=== PATIENT | male | born 1945 | race Caucasian/White ===

== ENCOUNTER 2020-05-02 10:24 | Day surgery (SDC) | payer MEDICARE ==
[2020-04-30 15:47] VITALS: BMI 20.3
[~2020-05-02 10:24] MED LIST: LACTATED RINGERS 1,000 ML IV SCH
[2020-05-02 10:58] VITALS: TEMP 98.3
[2020-05-02] MEDS ORDERED: LIDOCAINE 1% (10MG/ML) FOR IV START INTRADERMA ONE (11:07)
[2020-05-02] MEDS ORDERED: PROPOFOL 10 MG/ML 20 ML VIAL IV ONE (11:25)
--- NOTE | 2020-05-02 11:25 | P.GSHP ---
History of Present Illness H&P Date: 05/02/20 Chief Complaint: Rectal bleeding This a 74-year-old male who presents today for colonoscopy. Patient has had issues rectal bleeding. Past Medical History Past Medical History: Cancer, Chest Pain / Angina, Hypertension, Prostate Disord er Additional Past Medical History / Comment(s): current URI: sore throat,runny nose,cough. He went to [facility] 04/29/20 and had covid 19 test but no result yet. ulcer, rectal bleeding, hx skin cancer, enlarged prostate History of Any Multi-Drug Resistant Organisms: None Reported Additional Past Surgical History / Comment(s): removal of skin cancer from nose, forehead and back. Past Anesthesia/Blood Transfusion Reactions: No Reported Reaction Smoking Status: Former smoker - Past Family History Father Family Medical History: Cancer Medications and Allergies Home Medications Medication Instructions Recorded Confirmed Type Azithromycin [Zithromax] 250 mg PO DIRECTED 04/30/20 05/02/20 History Doxazosin [Cardura] 4 mg PO 199904/30/20 05/02/20 History Hydrocortisone Suppository 25 mg RECTAL BID 04/30/20 05/02/20 History [Anusol-Hc] lisinopriL [Zestril] 10 mg PO DAILY 04/30/20 05/02/20 History Allergies Allergy/AdvReac Type Severity Reaction Status Date / Time Penicillins Allergy Unknown Verified 05/02/20 10:56 MSG Allergy headaches Uncoded 05/02/20 10:56 styrofoam Allergy headache Uncoded 05/02/20 10:56 Surgical - Exam Vital Signs Temp Pulse Resp BP Pulse Ox 98.3 F 76 16 145/79 99 05/02/20 10:47 05/02/20 10:47 05/02/20 10:47 05/02/20 10:47 05/02/20 10:47 - General well developed, well nourished, no distress - Eyes PERRL - ENT normal pinna - Neck no masses - Respiratory normal expansion - Cardiovascular Rhythm: regular - Abdomen Abdomen: soft, non tender Assessment and Plan Assessment: Rectal bleeding. We'll perform colonoscopy.
--- NOTE | 2020-05-02 11:44 | P.OP ---
Date of Procedure: 05/02/20 Preoperative Diagnosis: GI bleed Postoperative Diagnosis: Hemorrhoids Procedure(s) Performed: Colonoscopy Anesthesia: MAC Surgeon: Kartik Guardado Condition: stable Disposition: PACU Description of Procedure: The patient's placed on the endoscopy table in the lateral position. He received IV sedation. Digital rectal exam was performed which revealed some external hemorrhoids. The colonoscope was then placed patient's anus and passed through the colon. The ileocecal valve could not be seen with certainty. Several times made to maneuver the scope into the valve was impossible. The flexible withdrawn. The ascending colon, transverse colon and descending colon appeared normal. The sigmoid colon appeared normal. Scope was brought back the rectum and this appeared normal. Scope was withdrawn through the anus and internal and external hemorrhoids are noted. Patient was scheduled for a barium enema to evaluate the cecum.
[2020-05-02 12:48] VITALS: BP 127/82
[2020-05-02 12:55] VITALS: PULSE 74; RESP 17
--- NOTE | 2020-05-02 16:37 | FL ---
EXAMINATION TYPE: FL barium enema w air contrast DATE OF EXAM: 05/02/2020 COMPARISON: NONE HISTORY: Incomplete colonoscopy TECHNIQUE: A double contrast barium enema study is performed. A total of 3 minutes 15 seconds of flu oroscopic time completed during procedure. 31 Spot images saved to PACS. FINDINGS: Car Framer view of the abdomen shows overall prominence of gas-filled colonic loops occupying t he majority of abdomen and pelvis. Catheter is inserted. Patient has significant pain due to history of rectal tear but is able to attem pt procedure. Balloon is inflated. There is unsuccessful filling to level of the cecum. Examination i s suboptimal due to redundancy of colon and tortuous course. Incomplete filling of cecum is noted. No evidence of any large mass, obstructing or constricting lesion throughout the colon. Rare one or 2 sigmoid colonic diverticula. Appendix and terminal ileum are not refluxed the cecum is not completely filled. IMPRESSION: Markedly redundant air-filled colon makes evaluation suboptimal. Unsuccessful filling of entire cecum occupying significant portion of the right upper pelvis and lower abdomen. I advise CT correlation possible ct clonography to evaluate this level.
== END 2020-05-02 14:00 | disposition home or self-care (01) ==
LOC: ORWHC2ENDO 10:24
PROVIDERS: ATTEND Surgery
DX: K64.4 Residual hemorrhoidal skin tags (principal); K64.8 Other hemorrhoids; K62.5 Hemorrhage of anus and rectum; Q43.8 Other specified congenital malformations of intestine; I10 Essential (primary) hypertension; J06.9 Acute upper respiratory infection, unspecified; N40.0 Benign prostatic hyperplasia without lower urinary tract symptoms; Z85.828 Personal history of other malignant neoplasm of skin; Z98.890 Other specified postprocedural states; Z87.891 Personal history of nicotine dependence; R63.4 Abnormal weight loss; M79.605 Pain in left leg; L02.33 Carbuncle of buttock; L03.211 Cellulitis of face; L03.114 Cellulitis of left upper limb; L23.7 Allergic contact dermatitis due to plants, except food; H02.829 Cysts of unspecified eye, unspecified eyelid; Z91.02 Food additives allergy status; Z79.899 Other long term (current) drug therapy; Z88.0 Allergy status to penicillin; Z91.09 Other allergy status, other than to drugs and biological substances
CPT/HCPCS: 93005; 74280; J2704; G0121

== ENCOUNTER 2020-09-13 10:40 | Day surgery (SDC) | payer MEDICARE ==
[2020-09-10 09:33] VITALS: BMI 20.3
[~2020-09-13 10:40] MED LIST changes: +LIDOCAINE 1% (10MG/ML) FOR IV START INTRADERMA PRN
[2020-09-13 12:09] VITALS: TEMP 97.9
[2020-09-13] MEDS ORDERED: PROPOFOL 10 MG/ML 20 ML VIAL IV ONE (13:35)
--- NOTE | 2020-09-13 13:51 | P.OP ---
Description of Procedure: ate of Procedure: 09/13/20 Preoperative Diagnosis: History of colon polyps Postoperative Diagnosis: Diverticulosis External hemorrhoids Procedure(s) Performed: Colonoscopy Anesthesia: MANUEL Surgeon: Kartik Guardado Pathology: none sent Condition: stable Disposition: PACU Description of Procedure: The patient's placed on the endoscopy table lateral position. He received IV sedation. Digital rectal exam was performed which revealed external hemorrhoids. Flexible colonoscope was then placed patient anus passed throughout the entire colon. The ileocecal valve was visually's. The cecum, ascending and transverse colon appeared normal. In the descending; was mild diverticular changes. The scope was brought back the rectum and this appeared normal. Scope withdrawn for patient. Additional CC's: Miguelito Matt
--- NOTE | 2020-09-13 13:54 | P.GSHP ---
History of Present Illness H&P Date: 09/13/20 Chief Complaint: History: Polyps This is a 74-year-old male been sick for colonoscopy. Patient presents history of colon polyps. Past Medical History Past Medical History: Cancer, Chest Pain / Angina, Hypertension, Prostate Disorder Additional Past Medical History / Comment(s): ulcer, rectal bleeding, hx skin cancer, enlarged prostate, HAS POLYP THAT IS CAUSING BLOCKAGE History of Any Multi-Drug Resistant Organisms: None Reported Additional Past Surgical History / Comment(s): removal of skin cancer from nose, forehead and back. COLONOSCOPY Past Anesthesia/Blood Transfusion Reactions: No Reported Reaction Smoking Status: Former smoker - Past Family History Father Family Medical History: Cancer Medications and Allergies Home Medications Medication Instructions Recorded Confirmed Type Doxazosin [Cardura] 4 mg PO 199904/30/20 09/13/20 History lisinopriL [Zestril] 10 mg PO DAILY 04/30/20 09/13/20 History Allergies Allergy/AdvReac Type Severity Reaction Status Date / Time Penicillins Allergy Unknown Verified 09/13/20 11:57 Childhood MSG Allergy headaches Uncoded 09/13/20 11:57 styrofoam Allergy headache Uncoded 09/13/20 11:57 Surgical - Exam Vital Signs Temp Pulse Resp BP Pulse Ox 97.9 F 83 18 142/92 97 09/13/20 12:07 09/13/20 12:07 09/13/20 12:07 09/13/20 12:07 09/13/20 12:07 - General well developed, well nourished, no distress - Eyes PERRL - ENT normal pinna, normal nares - Neck no masses - Respiratory normal expansion - Cardiovascular Rhythm: regular - Abdomen Abdomen: soft, non tender Assessment and Plan Assessment: History of colon polyps. We'll perform colonoscopy.
[2020-09-13 14:17] VITALS: BP 135/83; PULSE 65; RESP 18
== END 2020-09-13 14:59 | disposition home or self-care (01) ==
LOC: ORWHC2ENDO 10:40
PROVIDERS: ATTEND Surgery
DX: Z12.11 Encounter for screening for malignant neoplasm of colon (principal); K64.4 Residual hemorrhoidal skin tags; K57.30 Diverticulosis of large intestine without perforation or abscess without bleeding; Z86.010 Personal history of colon polyps; I10 Essential (primary) hypertension; N40.0 Benign prostatic hyperplasia without lower urinary tract symptoms; Z87.19 Personal history of other diseases of the digestive system; Z98.890 Other specified postprocedural states; Z87.891 Personal history of nicotine dependence; Z80.9 Family history of malignant neoplasm, unspecified; Z79.899 Other long term (current) drug therapy; Z88.0 Allergy status to penicillin; Z91.09 Other allergy status, other than to drugs and biological substances; Z91.02 Food additives allergy status
CPT/HCPCS: J2704; G0105; 45378

== ENCOUNTER → 2021-08-06 | Outpatient (CLI) | payer MEDICARE ==
--- NOTE | 2021-08-06 12:21 | CT ---
EXAMINATION TYPE: CT soft tissue neck wo con DATE OF EXAM: 08/06/2021 COMPARISON: None HISTORY: otalgia, discharge out of Lt ear CT DLP: 346.[address] of the neck was performed from the skull base through the lung apices. Examination is l imited given lack of fat and lack of contrast. Additionally there is streak artifact from dental amal santos. AIRWAY: The supraglottic, glottic, and subglottic portions of the airway appear patent and free of mass. SALIVARY GLANDS: The submandibular and parotid glands are free of mass or inflammatory process. THYROID GLAND: No nodules or masses seen. LYMPH NODES: No adenopathy seen greater than 1cm. LUNG APICES: No nodule or mass is seen. OTHER: Vascular structures are patent. No significant degenerative change of the cervical spine. N o abscess seen. Limited evaluation of the left-sided mastoid air cells as well as the middle ear cavity appear grossl y unremarkable. IMPRESSION: 1. Overall limited study given lack of contrast, fat and dental amalgam. 2. No distinct mass is appreciated with absolute certainty.
== END | disposition home or self-care (01) ==
LOC: RADCTMAIN 11:04
PROVIDERS: ATTEND Otolaryngology
DX: H92.02 Otalgia, left ear (principal)
CPT/HCPCS: 70490